=== PATIENT | female | born 1955 | race Asian ===

== ENCOUNTER 2016-07-11 13:56 | Inpatient (IN) | payer BC ==
[~2016-07-11] VITALS: Ht 152.4 cm; Wt 52.6 kg
[2016-07-11] MEDS ORDERED: NS 1000 ML BAG IV ONE (14:00)
[2016-07-11] MEDS ORDERED: fentaNYL CITRATE 250 MCG/5 ML AMP ONE (14:00)
[2016-07-11] MEDS ORDERED: SEVOFLURANE 15 MIN GAS INH ONE (14:00)
[2016-07-11] MEDS ORDERED: NS IRRIG SOLN 1000 ML IR ONE (14:00)
[2016-07-11] MEDS ORDERED: GLYCOPYRROLATE 0.2 MG/ML VIAL ONE (14:00)
[2016-07-11] MEDS ORDERED: LR 1,000 ML IV.SOLN IV ONE (14:00)
[2016-07-11] MEDS ORDERED: MORPHINE SULFATE 10 MG/ML VIAL ONE (14:00)
[2016-07-11] MEDS ORDERED: BUPIVACAINE /EPINEPHRINE/PF 0.25% 30 ML VIAL INJ ONE (14:00)
[2016-07-11] MEDS ORDERED: PROPOFOL 200MG/ 20ML VIAL (DIPRIVAN) IV ONE (14:00)
[2016-07-11] MEDS ORDERED: METOCLOPRAMIDE HCL 10 MG/2 ML VIAL ONE (14:00)
[2016-07-11] MEDS ORDERED: ROCURONIUM BROMIDE 10 MG/ML (ZEMURON) ONE (14:00)
[2016-07-11 14:15] VITALS: BP 102/75; PULSE 90; RESP 16; TEMP 97.5; O2SAT 97
--- NOTE | 2016-07-11 14:20 | NUR ---
Patient to ER bed 05 to gown for evaluation. Side rails up. Report given to WILFREDO Harper.
--- NOTE | 2016-07-11 14:25 | NUR ---
Patient awake in bed, stable condition. States has had right lower quadrant pain in abdomen since saturday and felt nauseated this AM. Denies vomiting. No other complaints/injuries per patient or noted. Daughter present.
[2016-07-11] MEDS ORDERED: DIATR MEGLU/DIATRIZ SOD 30 ML SOLUTION PO ONE (14:52)
[2016-07-11 14:54] LABS: BLOOD, URINE NEGATIVE (NEGATIVE); CLARITY/URINE SL HAZY (CLEAR); COLOR,URINE YELLOW (YELLOW); GLUCOSE,URINE NEGATIVE (NEGATIVE); KETONES,URINE TRACE (NEGATIVE); LEUKOCYTE ESTERASE ,URINE TRACE (NEGATIVE); NITRITE, URINE NEGATIVE (NEGATIVE); PROTEIN URINE TRACE (NEGATIVE); UROBILINOGEN,URINE 0.2 (0.2-1.0)
[2016-07-11 15:03] LABS: EOSINOPHILS # (AUTO) 0.1 K/uL (0.0-0.4); LYMPHOCYTES # (AUTO) 1.3 K/uL (1.0-5.5); MEAN CORPUSCULAR HEMOGLOBIN 33 pg (27-31)
[2016-07-11 15:16] LABS: INR 0.9 (0.8-1.2); PROTHROMBIN TIME 10.2 SECS (9.5-12.5)
[2016-07-11 15:19] LABS: BASOPHILS % (AUTO) 0.3 % (0.0-2.0); CALCIUM 9.3 mg/dL (8.4-11.0); CREATININE 0.99 mg/dL (0.55-1.30); EOSINOPHILS % (AUTO) 1.2 % (0.0-4.0); HEMATOCRIT 35.2 % (36-48); HEMOGLOBIN 12.1 g/dL (12.0-16.0); LYMPHOCYTES % (AUTO) 20.7 % (20.5-51.5); MEAN CORPUSCULAR HGB CONC 35 % (32-36); MEAN CORPUSCULAR VOLUME 96 fL (79.0-98.0); MONOCYTES # (AUTO) 0.3 K/uL (0.0-1.0); MONOCYTES % (AUTO) 5.5 % (1.7-9.3); NEUTROPHILS # (AUTO) 4.7 K/uL (1.8-7.7); NEUTROPHILS % (AUTO) 72.3 % (40.0-70.0); POTASSIUM 3.3 mmol/L (3.5-5.1); RED BLOOD CELL COUNT(AUTO) 3.68 MIL/uL (4.2-6.2); RED CELL DISTRIBUTION WIDTH 12.4 % (9.0-15.0); WHITE BLOOD COUNT (AUTO) 6.4 K/uL (4.8-10.8)
[2016-07-11 15:23] LABS: ALBUMIN 3.9 g/dL (3.4-4.8); PLATELET COUNT (AUTO) 99 K/uL (130-430); TOTAL BILIRUBIN 0.8 mg/dL (0.0-1.0); TOTAL PROTEIN, SERUM 7.5 g/dL (6.4-8.3)
[2016-07-11 15:34] LABS: BILIRUBIN,URINE NEGATIVE (NEGATIVE)
[2016-07-11 15:46] LABS: BACTERIA,URINE FEW /HPF (None Seen); MUCUS,URINE 2+ /LPF (None Seen); RBC,URINE NONE SEEN /HPF (0-3)
--- NOTE | 2016-07-11 16:06 | NUR ---
Patient in stable condition, no distress noted.
[2016-07-11] MEDS ORDERED: IOHEXOL 100 ML IV ONE (16:32)
[2016-07-11] MEDS ORDERED: POTASSIUM CHLORIDE 40 MEQ in NS 250 ML IV ONE (18:00)
[2016-07-11] MEDS ORDERED: PIPERACILLIN/TAZO 3.375 GM in NS 50 ML IV ONE (18:00)
--- NOTE | 2016-07-11 18:00 | NUR ---
Patient in stable condition, resting in bed, no distress noted.
[2016-07-11] MEDS ORDERED: PIPERACILLIN/TAZOBACTAM 3.375 GM/VIAL (ZOSYN) IV ONE (18:06)
--- NOTE | 2016-07-11 18:16 | NUR ---
Pharmacy called regarding need for Zosyn due to pyxis NS 50mL not working with medication
--- NOTE | 2016-07-11 18:45 | NUR ---
Patient will be admitted to care of Dr. Wolfe. Admitted to med surg unit. Will go to room 117A. Summary report printed. Report given to Armaan VILLALOBOS
--- NOTE | 2016-07-11 18:58 | NUR ---
ADMISSION: The patient, LUIS BARKER, 61 y/o, F admitted by AVANI GREEN MD, was given written information regarding hospital policies, unit procedures and contact persons. Valuables were checked and inventoried.
[2016-07-11] MEDS ORDERED: OMEP40CA33 PO (19:00)
--- NOTE | 2016-07-11 19:02 | NUR ---
CONSULTATION PAGED REASON FOR CONSULTATION:APPENDICITIS WAS CONSULT CALLED?Y PERSON WHO WAS NOTIFIED:ALICJA CONSULTING PHYSICIAN:FOZIA GARCIA [employer]ING STAMPER SPECIALTY:SURGEON LINING STAMPER PHONE NUMBER:[phone]
[2016-07-11 19:18] VITALS: BP 115/70; PULSE 68; RESP 17; TEMP 97.4; O2SAT 97
[2016-07-11] MEDS ORDERED: FLU VACC QS 2016-17(36MOS+)/PF 0.5 ML/SYR SYRINGE I.M. PRN (19:45)
--- NOTE | 2016-07-11 19:58 | NUR ---
OPENING NOTE Pt. and report received from admission nurse, WILFREDO Crook. Pt. is AAO x 4 and resting quietly in bed with no s/s of acute distress. Daughter Meredith at bedside. Plan of care and safety measures discussed; pt. and daughter verbalized understanding. Educated on how to use call light for assistance and when getting OOB. Verbalized understanding. Will continue to monitor.
--- NOTE | 2016-07-11 20:21 | NUR ---
DR. MARIN EXAMINE PT./PREOP SURGICAL CHECKLIST/INFORMED CONSENT/MRSA/EKG Late entry due to pt. care. Dr. Marin examined pt.; stated he was going to do Laparoscopic Appendectomy tonight. Surgical checklist completed and printed out; informed consent, blood transfusion paperwork signed and placed in front of pt.'s chart. Pt. and daughter Meredith at bedside denied any questions or concerns and stated Dr. Marin explained "everything to us." MRSA screen bilateral nares obtained. RT at bedside doing EKG.
[2016-07-11] MEDS: D5/0.45 NS 1,000 ML IV SCH (20:50)
[2016-07-11] MEDS: LACTOBACILLUS RHAMNOSUS GG 1 CAP CAPSULE PO SCH (21:00)
[2016-07-11] MEDS ORDERED: LEVOFLOXACIN 500 MG/D5W 100 ML IV SCH (21:00)
--- NOTE | 2016-07-11 21:30 | NUR ---
IV FLUIDS/IV ANTIBIOTICS Late entry due to pt. care. OR nurse Selena, RN at nurses station and stated to infuse due Levaquin IVPB and that they will infuse Flagyl IVPB due at 2200.
[2016-07-11] MEDS: metroNIDAZOLE 500 mg/NS 100 ML IV SCH (22:00)
--- NOTE | 2016-07-11 22:00 | NUR ---
PATIENT IN O.R. Pt. transferred to O.R. for procedure via stretcher; assisted by charge nurse, WILFREDO Gannon.
[2016-07-11] MEDS ORDERED: LR 1,000 ML IV ONE (22:04)
[2016-07-11] MEDS ORDERED: DIPHENHYDRAMINE INJ 50 MG/ML VIAL IVP PRN (22:15)
[2016-07-11] MEDS ORDERED: fentaNYL CITRATE/PF 100 MCG/2 ML AMP IVP PRN (22:15)
[2016-07-11] MEDS ORDERED: NALBUPHINE HCL 10 MG/ML AMP IVP PRN (22:15)
[2016-07-11] MEDS ORDERED: ePHEDrine sulfate 50 MG/ML VIAL IVP PRN (22:15)
[2016-07-11] MEDS ORDERED: NALOXONE HCL 0.4 MG/ML AMP (NARCAN) IVP PRN (22:15)
[2016-07-11] MEDS ORDERED: KETOROLAC TROMETHAMINE 30 MG VIAL IM PRN (22:15)
[2016-07-11] MEDS ORDERED: ONDANSETRON HCL 4 MG/2 ML VIAL IVP PRN ×2 (22:15)
[2016-07-11] MEDS ORDERED: MORPHINE 2 MG/ML INJ. SYRINGE IVP PRN (23:00)
[2016-07-11] MEDS ORDERED: HYDROcodone/ACETAMIN 5-325 MG TAB (NORCO/ VICODIN) PO PRN (23:00)
[2016-07-11 23:20] VITALS: BP 104/62; PULSE 16; RESP 16; TEMP 97.5; O2SAT 97
[2016-07-11 23:30] VITALS: BP 104/62; PULSE 71; RESP 16; TEMP 97.3; O2SAT 96
--- NOTE | 2016-07-11 23:40 | NUR ---
TRANSFER FROM PACU Pt. transferred from PACU. Report received from WILFREDO Walters. Pt. tolerated lap appy well; pt. received AAO x 4 with no s/s of acute distress. VSS. Pt. denies any pain or discomfort at this time. (3) lap sites noted to abdomen; dry and intact. Educated pt. regarding incentive spirometer and SCDS. Daughter Meredith at bedside. Encouraged pt. to use call light for any needs. Will continue to monitor.
[2016-07-11 23:45] VITALS: PULSE 74
--- NOTE | 2016-07-12 01:48 | NUR ---
ROUNDS Pt. is awake and resting quietly in bed with no s/s of acute distress. VSS. Pt. able to use bedpan to void; SERVICING REP at bedside. Safety measures in place. Encouraged pt. to use call light for any needs. Will continue to monitor.
--- NOTE | 2016-07-12 02:01 | NUR ---
PAIN Pt. c/o "09/10" pain to abdomen. pt. medicated with [place] PO as ordered PRN for moderate pain. See EMAR. Educated pt. regarding medication and s/e. Pt. verbalized understanding. Requested ice chips. Safety measures in place. Encouraged call light use. Will continue to monitor.
[2016-07-12 04:00] VITALS: BP 96/56; PULSE 81; RESP 16; TEMP 98.9; O2SAT 96
--- NOTE | 2016-07-12 04:21 | NUR ---
TROUBLE SLEEPING Pt. denies any pain or discomfort at this time but states she is having trouble sleeping at this time. No s/s of acute distress. Safety measures in place. Encouraged pt. on incentive spirometer use. Pt. able to inspire up to [id number] at this time. Reminded pt. to use call light for any needs. Will continue to monitor.
[2016-07-12] MEDS: metroNIDAZOLE 500 mg/NS 100 ML IV SCH ×2 (05:38→15:01)
[2016-07-12] MEDS: D5/0.45 NS 1,000 ML IV SCH ×2 (05:38→16:00)
[2016-07-12 06:29] LABS: BASOPHILS % (AUTO) 0.2 % (0.0-2.0); EOSINOPHILS % (AUTO) 0.1 % (0.0-4.0); HEMATOCRIT 34.5 % (36-48); HEMOGLOBIN 11.6 g/dL (12.0-16.0); LYMPHOCYTES # (AUTO) 0.6 K/uL (1.0-5.5); LYMPHOCYTES % (AUTO) 13.8 % (20.5-51.5); MEAN CORPUSCULAR HEMOGLOBIN 33 pg (27-31); MEAN CORPUSCULAR HGB CONC 34 % (32-36); MEAN CORPUSCULAR VOLUME 97 fL (79.0-98.0); MONOCYTES # (AUTO) 0.1 K/uL (0.0-1.0); MONOCYTES % (AUTO) 1.3 % (1.7-9.3); NEUTROPHILS # (AUTO) 3.9 K/uL (1.8-7.7); NEUTROPHILS % (AUTO) 84.6 % (40.0-70.0); PLATELET COUNT (AUTO) 92 K/uL (130-430); RED BLOOD CELL COUNT(AUTO) 3.57 MIL/uL (4.2-6.2); RED CELL DISTRIBUTION WIDTH 12.2 % (9.0-15.0); WHITE BLOOD COUNT (AUTO) 4.6 K/uL (4.8-10.8)
[2016-07-12 06:40] LABS: ALBUMIN 3.4 g/dL (3.4-4.8); CALCIUM 8.9 mg/dL (8.4-11.0); CREATININE 0.86 mg/dL (0.55-1.30); POTASSIUM 4.1 mmol/L (3.5-5.1); TOTAL BILIRUBIN 0.5 mg/dL (0.0-1.0); TOTAL PROTEIN, SERUM 7.2 g/dL (6.4-8.3)
--- NOTE | 2016-07-12 07:14 | NUR ---
DUE MEDS/CLOSING NOTES Due meds administered as ordered. Pt. tolerated well. Pt. denies any pain or discomfort at this time. All needs met throughout shift. IV fluids infusing as ordered. No significant changes. Safety measures in place. Encouraged pt. to use call light for any needs. Will endorse care to oncoming day shift nurse.
--- NOTE | 2016-07-12 08:10 | NUR ---
Patient ambulating in hallway with assist.
[2016-07-12 08:20] VITALS: BP 99/56; PULSE 66; RESP 18; TEMP 98.2; O2SAT 97
[2016-07-12] MEDS ORDERED: OMEPRAZOLE 20 MG CAPSULE.DR (PriLOSEC) PO SCH (09:00)
[2016-07-12] MEDS: LACTOBACILLUS RHAMNOSUS GG 1 CAP CAPSULE PO SCH (09:18)
--- NOTE | 2016-07-12 09:20 | NUR ---
Routine Scheduled medications given per order. Patient sitting in chair at bedside with mckayla at bedside. No complaint of pain at this time. Patient stable.
--- NOTE | 2016-07-12 09:30 | NUR ---
Nutrition Update Javan Scale 17 noted. Pt admitted for appendicitis. Diet: clear liquid, no red BMI: 22.7 kg/m2 RD to follow per nutrition care standards.
[2016-07-12 12:00] VITALS: BP 95/57; PULSE 75; RESP 18; TEMP 96.6; O2SAT 96
--- NOTE | 2016-07-12 15:00 | NUR ---
Routine Scheduled IV ABX given per order. Patient ambulated outside room to sit in chair. Called daughter, Meredith [phone] and advised of patient status.
[2016-07-12 18:05] VITALS: BP 117/73; PULSE 109; RESP 18; TEMP 97.2; O2SAT 95
--- NOTE | 2016-07-12 18:30 | NUR ---
Routine Patient resting in bed with no complaint of pain at this time.
[2016-07-12] MEDS ORDERED: HYDR-1189 PO (18:40)
[2016-07-12 19:16] VITALS: BP 117/73; PULSE 109; RESP 18; TEMP 97.2; O2SAT 95
--- NOTE | 2016-07-12 20:00 | NUR ---
Discharge instructions / discharge Both written and verbal discharge instructions given to patient and daughter, Meredith. Prescriptions given as well: norco and colace. Both verbalized understanding of instructions. Peripheral IV removed intact. Patient tolerated well. Patient discharged to home in stable condition; accompanied by daughter.
== END 2016-07-12 20:00 | disposition home or self-care (01) | DRG 340 ==
LOC: SED 13:56 → SMU 18:40
PROC: 0DTJ4ZZ Resection of Appendix, Percutaneous Endoscopic Approach (ICD-10-PCS; principal; 2016-07-11 21:00)
DX: K35.3 Acute appendicitis with localized peritonitis (principal); E78.00 Pure hypercholesterolemia, unspecified; K21.9 Gastro-esophageal reflux disease without esophagitis; I88.0 Nonspecific mesenteric lymphadenitis; E78.5 Hyperlipidemia, unspecified
CPT/HCPCS: 36415; 71010; 80053; 81000-TC; 83605; 83690-TC; 85025; 85610-TC; 87040-TC; 87081; 88304; 93005; 94010; 96365; 99285; C1727; J1956; J2270; J2543; J2704; J2765; J3010; J3480; J3490; J7030; J7040; J7050; J7120; Q2037; Q9964; Q9967

== ENCOUNTER 2016-08-23 20:18 | Emergency (ER) | payer BC ==
[~2016-08-23] VITALS: Ht 147.3 cm; Wt 45.4 kg
[~2016-08-23 20:18] MED LIST: HYDR-1189 PO; OMEP40CA33 PO
[2016-08-23 20:30] VITALS: BP_SYST 119
[2016-08-23] MEDS: FAMOTIDINE 20 MG TABLET PO ONE (22:08)
[2016-08-23] MEDS: MAG HYDROX/AL HYDROX/SIMETH 30 ML, BELLADONNA ALKALOIDS/PHENOBARB 10 ML, LIDOCAINE VISC... PO ONE ×3 (22:09)
[2016-08-23] MEDS: LORazepam 2 MG/ML VIAL (FOR ER USE) IM ONE (22:09)
[2016-08-23 22:13] LABS: EOSINOPHILS # (AUTO) 0.1 K/uL (0.0-0.4); HEMATOCRIT 35.3 % (36-48); HEMOGLOBIN 12.3 g/dL (12.0-16.0); LYMPHOCYTES # (AUTO) 1.9 K/uL (1.0-5.5); LYMPHOCYTES % (AUTO) 42.5 % (20.5-51.5); MEAN CORPUSCULAR HEMOGLOBIN 33 pg (27-31); MEAN CORPUSCULAR HGB CONC 35 % (32-36); MEAN CORPUSCULAR VOLUME 94 fL (79.0-98.0); MONOCYTES # (AUTO) 0.3 K/uL (0.0-1.0); MONOCYTES % (AUTO) 7.3 % (1.7-9.3); NEUTROPHILS # (AUTO) 2.1 K/uL (1.8-7.7); NEUTROPHILS % (AUTO) 47.2 % (40.0-70.0); PLATELET COUNT (AUTO) 130 K/uL (130-430); RED BLOOD CELL COUNT(AUTO) 3.75 MIL/uL (4.2-6.2); RED CELL DISTRIBUTION WIDTH 12.4 % (9.0-15.0); WHITE BLOOD COUNT (AUTO) 4.4 K/uL (4.8-10.8)
[2016-08-23 22:29] LABS: CALCIUM 9.1 mg/dL (8.4-11.0); CREATININE 1.04 mg/dL (0.55-1.30); POTASSIUM 3.4 mmol/L (3.5-5.1)
[2016-08-23 22:34] LABS: TOTAL BILIRUBIN 0.5 mg/dL (0.0-1.0)
[2016-08-23 22:35] LABS: ALBUMIN 3.7 g/dL (3.4-4.8); TOTAL PROTEIN, SERUM 6.7 g/dL (6.4-8.3)
[2016-08-23 23:25] VITALS: BP_SYST 112
== END 2016-08-23 23:25 | disposition home or self-care (01) ==
LOC: SED 20:18
DX: K21.9 Gastro-esophageal reflux disease without esophagitis (principal); F41.9 Anxiety disorder, unspecified
CPT/HCPCS: 36415; 80053; 84484; 85025; 96372; 99284; J2001; J2060

== ENCOUNTER 2017-01-11 10:00 | Outpatient (CLI) | payer BC | END 2017-01-11 20:13 | disposition home or self-care (01) | LOC: SMA 10:00 | PROVIDERS: ATTEND Internal Medicine | DX: Z12.31 Encounter for screening mammogram for malignant neoplasm of breast (principal) | CPT/HCPCS: G0202 ==

== ENCOUNTER 2018-01-29 07:50 | Outpatient (CLI) | payer BC | END 2018-01-29 19:59 | disposition home or self-care (01) | LOC: SMA 07:50 | PROVIDERS: ATTEND Internal Medicine | DX: Z12.31 Encounter for screening mammogram for malignant neoplasm of breast (principal) | CPT/HCPCS: 77067 ==

== ENCOUNTER 2019-05-19 14:18 | Outpatient (CLI) | payer BC | END 2019-05-19 20:50 | disposition home or self-care (01) | LOC: SMA 14:18 | PROVIDERS: ATTEND Orthopaedic Surgery | DX: Z12.31 Encounter for screening mammogram for malignant neoplasm of breast (principal) | CPT/HCPCS: 77067 ==

== ENCOUNTER 2020-09-21 09:30 | Outpatient (CLI) | payer OTHER, MEDICARE ==
[~2020-09-21 09:30] MED LIST changes: -HYDR-1189 PO; +HYDR-3919 PO; +OMEP40CA13 PO; -OMEP40CA33 PO
== END 2020-09-21 20:30 | disposition home or self-care (01) ==
LOC: SMA 09:30
DX: Z12.31 Encounter for screening mammogram for malignant neoplasm of breast (principal)
CPT/HCPCS: 77067